=== PATIENT | male | born 1930 | race Caucasian/White ===

== ENCOUNTER → 2016-07-30 | Outpatient (CLI) | payer MEDICARE ==
[~2016-07-30] MED LIST: ASPI81TA2 PO; CALC-348 PO; CALC-709 PO; CALC625T PO; CLOP75TA33 PO; FLUD0.1T PO; FURO40TA5 PO; GABA-222 PO; LEVO75TA10 PO; MIDO10TA PO; MULT1TAB69 PO; POTA20TA10 PO; TAMS0.4C20 PO; VIT1CAPS5 PO; [UNRECOGNIZED DRUG - CODE] PO
== END ==
LOC: IMA 10:08
PROVIDERS: ATTEND Family Medicine
DX: M81.0 Age-related osteoporosis without current pathological fracture (principal); Z87.828 Personal history of other (healed) physical injury and trauma

== ENCOUNTER 2017-09-29 16:21 | Inpatient (IN) ==
[2017-09-29] MEDS ORDERED: NS 1,000 ML IV SCH (17:00)
[2017-09-29] MEDS: SALINE FLUSH 10ml SYRINGE IVF PRN ×2 (17:20→18:53)
[2017-09-29] MEDS ORDERED: IOHEXOL 350mg/ml 75ml INJECTION ONE (17:34)
[2017-09-29] MEDS ORDERED: SALINE FLUSH 10ml SYRINGE ONE (17:34)
[2017-09-29] MEDS ORDERED: NITROGLYCERIN 2% OINTMENT 1gm PACKET TP ONE (18:13)
[2017-09-29] MEDS ORDERED: FUROSEMIDE 40 MG/4 ML INJECTION IVP ONE (18:37)
--- NOTE | 2017-09-29 18:37 | Emergency Department Report ---
SOB HPI - General Chief Complaint: Shortness of Breath/Dyspnea <Donnie Olsen - 09/29/17 19: 06> Stated Complaint: sob weak hasnt eaten much since 09/24/17 <Donnie Olsen - 09/29/17 19:06> Time Seen by Provider: 09/29/17 16:50 <Donnie Olsen - 09/29/17 19:06> - History of Present Illness 87-year-old male presents to ER with shortness of breath worsening over the past several days. He had a suprapubic catheter placed a month ago due to obstructive uropathy and inability to self catheter efficiently. He has done well with the suprapubic catheter, is draining every 4 hours and feels like it works much better. However he has become short of breath last couple of days. Family brings him to the ER with worsening shortness of breath. He has a history of leukemia and cardiomyopathy with congestive heart failure. <Med Vasquez - 09/29/17 18:40> - Related Data Home Medications Medication Instructions Recorded Confirmed Fludrocortisone [Florinef] 0.1 mg PO DAILY #0 02/05/15 09/29/17 Levothyroxine Sodium 75 mcg PO DAILY #0 02/05/15 09/29/17 Lysine 500 mg PO BID #0 02/05/15 09/29/17 Potassium Chloride [K-DUR 20 mEq 20 meq PO DAILY #0 02/05/15 09/29/17 Tablet] Calcium/Mag Oxide/Vitamin D3 1 cap PO DAILY 08/31/17 09/29/17 [Coral Calcium 1,000 mg Cap] Cholecalciferol (Vitamin D3) 400 unit PO DAILY 08/31/17 09/29/17 [Vitamin D3] Furosemide [Lasix 40 mg Tab] 40 mg PO DAILY 08/31/17 09/29/17 Gabapentin [Neurontin] 600 mg PO BID 08/31/17 09/29/17 Midodrine [Proamatine] 5 mg PO DAILY 08/31/17 09/29/17 Acetaminophen [Tylenol Arthritis] 2 tab PO HS 09/29/17 09/29/17 Aspirin [Adult Aspirin Regimen] 81 mg PO DAILY 09/29/17 09/29/17 LORazepam [Ativan] 0.5 mg PO PRN 09/29/17 09/29/17 Tamsulosin [Flomax] 0.8 mg PO HS 09/29/17 09/29/17 Vit C/Vit E AC/Lut/Copper/Zinc 1 cap PO BID 09/29/17 09/29/17 [Preservision Lutein Softgel] <Donnie Olsen - 09/29/17 19:06> Allergies Allergy/AdvReac Type Severity Reaction Status Date / Time chlorpromazine Allergy Unknown Verified 09/29/17 17:07 clindamycin Allergy Unknown Verified 09/29/17 17:07 hydrocodone Allergy Unknown Verified 09/29/17 17:07 morphine Allergy Unknown Verified 09/29/17 17:07 Sulfa (Sulfonamide Allergy Unknown Verified 09/29/17 17:07 Antibiotics) <Donnie Olsen - 09/29/17 19:06> Review of Systems All systems: reviewed and negative except as stated <Med Vasquez - 18:40> [facility] Patient Stated Medical History Cerebrovascular Accident Yes: TIA Peripheral Neuropathy Yes Cataracts Yes: Bilateral Hearing Loss Yes Cardiac Arrhythmia Yes: Afib Congestive Heart Failure Yes: Chronic systolic, cardiomyopathy Coronary Artery Disease Yes 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 Hypertension Yes: Pulmonary HTN Hypotension Yes: Orthostatic Valvular Heart Disease Yes: Mitral regurgitation Other Cardiology Yes: Cardiomyopathy Sleep Apnea No Other GI Yes: Constipation Hx Benign Prostatic Yes Hyperplasia Other Yes: urinary [id number] Clotting Problems Yes: on aspirin Other Hematologic Yes: HX OF Chronic leukemia and lymphoma Osteoarthritis Yes Shingles Yes <Donnie Olsen - 09/29/17 19:06> Patient Stated Medical History Cerebrovascular Accident Yes: TIA Peripheral Neuropathy Yes Cataracts Yes: Bilateral Hearing Loss Yes Cardiac Arrhythmia Yes: Afib Congestive Heart Failure Yes: Chronic systolic, cardiomyopathy Coronary Artery Disease Yes 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 CHF. Chronic pain. BPH. Chronic Leukemia. Nonrheumatic mitral valve insufficiency. Cardiomyopathy. Atrial fibrillation <PedroMed Dougherty 09/29/17 18:40> Surgical History: Cardiac pacemaker. Appendectomy. Cholecystectomy. cataracts bilaterally. radio-ablation. colonoscopy. Heart Cath- 04/02/17. TURP- 09/01/17 <PedroMed Ladonna 09/29/17 18:40> - Social History Smoking status: Never smoker <PedroMed Ladonna 09/29/17 18:40> second hand exposure: No <PedroMed Dougherty 09/29/17 18:40> Substance use type: does not use <PedroMed Dougherty 09/29/17 18:40> Alcohol intake frequency: does not drink <PedroMed Dougherty 09/29/17 18:40> Housing: house <PedroMed Ladonna 09/29/17 18:40> Household members: spouse <PedroMed Dougherty 09/29/17 18:40> Current occupational status: retired <PedroMed Ladonna 09/29/17 18:40> Does patient use chewing tobacco?: No <PedroMed Dougherty 09/29/17 18:40> Current residence: Apartment/Private Home <PedroMed Dougherty 09/29/17 18:40> Physical Exam - Limitations Limitations: no limitations <PedroMed Dougherty 09/29/17 18:40> - General General appearance: alert <PedroMed Dougherty 09/29/17 18:40> - Normal Exams: Head:: Normocephalic without trauma <PedroMed Dougherty 09/29/17 18:40> Cardiovascular:: Regular rate and rhythm, without murmur or gallop, Pulses 2+ all extremities, capillary refill, <2 seconds all extremities <PedroMed Dougherty 09/29/17 18:40> Abdomen:: Bowel sounds positive, soft, non-tender, non-distended, no hepatosplenomegaly, masses or bruits noted <PedroMed Dougherty 09/29/17 18:40> Neurological:: Patient is alert, and oriented, cranial nerves, motor/sensory/ cerebellar, exams w/o gross deficits, to observation <PedroMed Ladonna 18:40> Psychiatric:: Patient exhibits, appropriate attention, emotion and affect < Med Vasquez - 09/29/17 18:40> - Respiratory Respiratory exam: Present: crackles (right greater than left) <Med Vasquez - 09/29/17 18:40> - Cardiovascular Cardiovascular exam: Present: regular rate, normal rhythm <Med Vasquez - 18:40> Course Vital Signs Temperature 99.0 F 09/29/17 16:25 Pulse Rate 72 09/29/17 16:25 Respiratory Rate 20 09/29/17 16:25 Blood Pressure 186/100 H 09/29/17 16:25 Pulse Oximetry 94 09/29/17 16:25 Temperature 99.0 F 09/29/17 16:25 Pulse Rate 75 09/29/17 18:15 Respiratory Rate 20 09/29/17 16:25 Blood Pressure 166/99 H 09/29/17 18:15 Pulse Oximetry 94 09/29/17 18:15 <Donnie Olsen - 09/29/17 19:06> Vital Signs Temperature 99.0 F 09/29/17 16:25 Pulse Rate 72 09/29/17 16:25 Respiratory Rate 20 09/29/17 16:25 Blood Pressure 186/100 H 09/29/17 16:25 Pulse Oximetry 94 09/29/17 16:25 Temperature 99.0 F 09/29/17 16:25 Pulse Rate 75 09/29/17 18:15 Respiratory Rate 20 09/29/17 16:25 Blood Pressure 166/99 H 09/29/17 18:15 Pulse Oximetry 94 09/29/17 18:15 <Med Vasquez - 09/29/17 18:40> Shortness of Breath/Dyspnea - [facility] Narrative Medical decision making narrative: CT chest shows diffuse (pattern with mild effusions only. No pulmonary embolism Patient will be admitted to the hospitalist service for congestive heart failure with pulmonary edema. Dr. Braulio Mills, the patient's son was notified of these findings, and questions were answered. <Donnie Olsen - 09/29/17 19:06> Peripheral IV started, and labs ordered including CBC, CMP, troponin, EKG, BNP and UA. Patient is 1 month out from a suprapubic catheterization placement and sedentary. Due to history of leukemia as well as other health issues, is likely her elevated BNP significant, therefore he was sent directly for CT angiogram of the lungs. BNP returns at 34,800 with normal white count and other labs reasonable. Hospitalist consulted and agreed to accept the patient for inpatient diuresis. Patient given 40 mg Lasix IV. <Med Vasquez E - 09/29/17 18:40> - Differential Diagnosis Likely: acute exacerbation of chronic obstructive airways disease, congestive heart failure, asthma with exacerbation, pulmonary embolism <PedroMed de la o E - 09/29/17 18:40> - Lab Data Result diagrams: 09/29/17 17:02 09/29/17 17:02 <Donnie Olsen H - 09/29/17 19:06> Lab Results 09/29/17 09/29/17 09/29/17 Range/Units 17:02 17:02 17:02 WBC 9.9 (4.5-11.0) T/MM3 RBC 3.83 L (4.50-5.90) M/MM3 Hgb 13.1 L (13.5-17.5) GM/DL Hct 40.8 L (41-53) % MCV 106.5 H (80-100) UM3 MCH 34.2 H (26-34) UUG MCHC 32.1 (31-37) GM/DL RDW Std Deviation 70.4 H (36.9-50.2) FL Plt Count 139 (130-400) T/MM3 MPV 10.9 (9.4-12.4) UM3 Immature Gran % (Auto) 0.6 H (0.0-0.5) % Neut % (Auto) 76.6 H (33-66) % Lymph % (Auto) 9.8 L (23-45) % [place] % (Auto) 12.7 H (0-9.0) % Eos % (Auto) 0.0 (0-4) % Baso % (Auto) 0.3 (0-2) % Neut # (Auto) 7.6 (1.8-7.7) T/MM3 Lymph # (Auto) 1.0 (1-4.8) T/MM3 [place] # (Auto) 1.3 H (0-0.8) T/MM3 Eos # (Auto) 0.0 (0-0.5) T/MM3 Baso # (Auto) 0.0 (0-0.2) T/MM3 Abs Immat Gran (auto) 0.06 H (0.00-0.03) T/MM3 Turbidity < 20 (0-20) Sodium 141 (134-144) MEQ/L Potassium 3.3 L (3.6-5) MEQ/L Chloride 101 (98-107) MEQ/L Carbon Dioxide 28 (22-30) MEQ/L Anion Gap 12 (5-15) meq/L BUN 18.0 (9-20) MG/DL Creatinine 0.9 (0.8-1.5) mg/dL GFR Calculation 80 BUN/Creatinine Ratio 20 (6-26) RATIO Glucose 127 H (75-110) MG/DL Calculated Osmolality 275 (261-280) MOSM/KG Calcium 9.7 (8.4-10.2) MG/DL Total Bilirubin 1.10 (0.20-1.30) MG/DL Icterus Index < 2 (0-7) AST 63 H (17-59) U/L ALT 37 (1-50) U/L Alkaline Phosphatase 138 H (38-126) U/L NT-Pro-B Natriuret Pep 97663 H (0-175) pg/mL Total Protein 7.3 (6.3-8.2) g/dL Albumin 3.8 (3.5-5.0) g/dL Globulin 3.5 (2.4-3.6) G/DL Albumin/Globulin Ratio 1.1 (1.1-2.2) RATIO Specimen Hemolysis < 15 (0-25) Ur Collection Type Urine, suprapubic Urine Color Yellow (YELLOW) Urine Clarity Cloudy Urine pH 6.5 (5.0-8.0) Ur Specific [place] 1.020 (1.015-1.025) Urine Protein 3+ A (NEGATIVE) Urine Glucose (UA) Negative (NEGATIVE) Urine Ketones Negative (NEGATIVE) Urine Occult Blood 3+ A (NEGATIVE) Urine Nitrate Positive A (NEGATIVE) Urine Bilirubin Negative (NEGATIVE) Urine Urobilinogen 1.0 (NORMAL) EU/DL Ur Leukocyte Esterase 3+ (NEGATIVE) Urine RBC Tntc (0-3) /HPF Urine WBC Tntc H (0-5) /HPF Urine Bacteria 3+ H (NEGATIVE) Ur Culture Indicated? Cult reflexed &setup <Donnie Olsen H - 09/29/17 19:06> Lab Results 09/29/17 09/29/17 09/29/17 Range/Units 17:02 17:02 17:02 WBC 9.9 (4.5-11.0) T/MM3 RBC 3.83 L (4.50-5.90) M/MM3 Hgb 13.1 L (13.5-17.5) GM/DL Hct 40.8 L (41-53) % MCV 106.5 H (80-100) UM3 MCH 34.2 H (26-34) UUG MCHC 32.1 (31-37) GM/DL RDW Std Deviation 70.4 H (36.9-50.2) FL Plt Count 139 (130-400) T/MM3 MPV 10.9 (9.4-12.4) UM3 Immature Gran % (Auto) 0.6 H (0.0-0.5) % Neut % (Auto) 76.6 H (33-66) % Lymph % (Auto) 9.8 L (23-45) % [place] % (Auto) 12.7 H (0-9.0) % Eos % (Auto) 0.0 (0-4) % Baso % (Auto) 0.3 (0-2) % Neut # (Auto) 7.6 (1.8-7.7) T/MM3 Lymph # (Auto) 1.0 (1-4.8) T/MM3 [place] # (Auto) 1.3 H (0-0.8) T/MM3 Eos # (Auto) 0.0 (0-0.5) T/MM3 Baso # (Auto) 0.0 (0-0.2) T/MM3 Abs Immat Gran (auto) 0.06 H (0.00-0.03) T/MM3 Turbidity < 20 (0-20) Sodium 141 (134-144) MEQ/L Potassium 3.3 L (3.6-5) MEQ/L Chloride 101 (98-107) MEQ/L Carbon Dioxide 28 (22-30) MEQ/L Anion Gap 12 (5-15) meq/L BUN 18.0 (9-20) MG/DL Creatinine 0.9 (0.8-1.5) mg/dL GFR Calculation 80 BUN/Creatinine Ratio 20 (6-26) RATIO Glucose 127 H (75-110) MG/DL Calculated Osmolality 275 (261-280) MOSM/KG Calcium 9.7 (8.4-10.2) MG/DL Total Bilirubin 1.10 (0.20-1.30) MG/DL Icterus Index < 2 (0-7) AST 63 H (17-59) U/L ALT 37 (1-50) U/L Alkaline Phosphatase 138 H (38-126) U/L NT-Pro-B Natriuret Pep 53039 H (0-175) pg/mL Total Protein 7.3 (6.3-8.2) g/dL Albumin 3.8 (3.5-5.0) g/dL Globulin 3.5 (2.4-3.6) G/DL Albumin/Globulin Ratio 1.1 (1.1-2.2) RATIO Specimen Hemolysis < 15 (0-25) Ur Collection Type Urine, suprapubic Urine Color Yellow (YELLOW) Urine Clarity Cloudy Urine pH 6.5 (5.0-8.0) Ur Specific [place] 1.020 (1.015-1.025) Urine Protein 3+ A (NEGATIVE) Urine Glucose (UA) Negative (NEGATIVE) Urine Ketones Negative (NEGATIVE) Urine Occult Blood 3+ A (NEGATIVE) Urine Nitrate Positive A (NEGATIVE) Urine Bilirubin Negative (NEGATIVE) Urine Urobilinogen 1.0 (NORMAL) EU/DL Ur Leukocyte Esterase 3+ (NEGATIVE) Urine RBC Tntc (0-3) /HPF Urine WBC Tntc H (0-5) /HPF Urine Bacteria 3+ H (NEGATIVE) Ur Culture Indicated? Cult reflexed &setup <Med Vasquez E - 09/29/17 18:40> Disposition Clinical Impression: Congestive heart failure <Donnie Olsen - 09/29/17 19:06> Disposition: 02 To [facility] <Donnie Olsen - 09/29/17 19:06> Condition: Stable <Donnie Olsen 09/29/17 19:06> Instructions: <Donnie Olsen 09/29/17 19:06> Prescriptions: No Action Potassium Chloride [K-DUR 20 mEq Tablet] 20 meq PO DAILY #0 Lysine 500 mg PO BID #0 Calcium/Mag Oxide/Vitamin D3 [Coral Calcium 1,000 mg Cap] 1 cap PO DAILY Cholecalciferol (Vitamin D3) [Vitamin D3] 400 unit PO DAILY Furosemide [Lasix 40 mg Tab] 40 mg PO DAILY Gabapentin [Neurontin] 600 mg PO BID Midodrine [Proamatine] 5 mg PO DAILY Tamsulosin [Flomax] 0.8 mg PO HS Vit C/Vit E AC/Lut/Copper/Zinc [Preservision Lutein Softgel] 1 cap PO BID Fludrocortisone [Florinef] 0.1 mg PO DAILY #0 Levothyroxine Sodium 75 mcg PO DAILY #0 Aspirin [Adult Aspirin Regimen] 81 mg PO DAILY LORazepam [Ativan] 0.5 mg PO PRN Acetaminophen [Tylenol Arthritis] 2 tab PO HS <Donnie Olsen - 09/29/17 19:06> Referrals: Denis Haile MD [Primary Care Provider] - <Donnie Olsen - 09/29/17 19:06> Forms: <Donnie Olsen - 09/29/17 19:06> Time of Disposition: 18:42 <Med Vasquez - 09/29/17 18:42> - Seen By: physician <Donnie Olsen - 09/29/17 19:06>
[2017-09-29] MEDS ORDERED: CEFTRIAXONE (ER USE ONLY) 1 GM in NS 100 ML IV ONE (19:19)
[2017-09-29] MEDS ORDERED: SENNA + DOCUSATE TABLET PO PRN (19:41)
[2017-09-29 19:51] VITALS: BMI 24.0
--- NOTE | 2017-09-29 19:54 | History & Physical Report ---
History of Present Illness Date: 09/30/17 Chief complaint: SOA x past few days, weakness HPI: Mr. Mills is an 87 y/o with history significant for systolic HF, cardiomyopathy, Afib/flutter w/ pacemaker, pulm HTN, ALYSAH, orthostatic hypotension, suprapubic catheter and multiple other issues who presents to ER in [place] w/ cc of SOA x past 3-5 days. He also c/o gradual weakness over the past month and over the past week has not had much appetite. Patient denies cp , SWAIN, n/v/d, f/c/s, melena, hematochezia, and hematuria. In ER patient had CTA chest and there was no PE but cardiomegaly, bilateral pleural effusion and diffuse changes c/w fluid overload/edema. Patient given 1 " nitro paste and 40mg IV Lasix x one in ER. UA showed + nitrites and TNTC WBCs (suprapubic cath in place) and patient started on Rocephin 1 gram IV x one in ER. Patient had EKG which showed paced rhythm, troponin is pending, Hgb = 13, BP was elevated at 179//98 however patient is on midodrine and fludrocortisone. BNP was 34,000. Patient is followed by Dr. Rich of cardiology. Patient to be admitted to the Hospitalist service for further evaluation and management and will consult Dr. Rich. Patient is feeling a little better, and had a good response to the Lasix IV 40mg x one in the ER. Review of Systems All systems PM: 10-point ROS was reviewed, no additional remarkable complaints except Past Medical History Medical History Updates: CAD. CHF. Chronic pain. BPH. Chronic Leukemia. Nonrheumatic mitral valve insufficiency. Cardiomyopathy. Atrial fibrillation Surgical History: Cardiac pacemaker. Appendectomy. Cholecystectomy. cataracts bilaterally. radio-ablation. colonoscopy. Heart Cath- 04/02/17. TURP- 09/01/17 Family History: Father lived to be 97 y/o and had minimal medical issues. Mother had kidney issues, had partial nephrectomy on one side and a total nephrectomy on the other. Family History: As Above - Social History Smoking status: Never smoker Does patient use chewing tobacco?: No Current residence: Apartment/Private Home Medications Home Medications Medication Instructions Recorded Confirmed Type Fludrocortisone [Florinef] 0.1 mg PO DAILY #0 02/05/15 09/29/17 History Levothyroxine Sodium 75 mcg PO DAILY #0 02/05/15 09/29/17 History Lysine 500 mg PO BID #0 02/05/15 09/29/17 History Potassium Chloride [K-DUR 20 mEq 20 meq PO DAILY #0 02/05/15 09/29/17 History Tablet] Calcium/Mag Oxide/Vitamin D3 1 cap PO DAILY 08/31/17 09/29/17 History [Coral Calcium 1,000 mg Cap] Cholecalciferol (Vitamin D3) 400 unit PO DAILY 08/31/17 09/29/17 History [Vitamin D3] Furosemide [Lasix 40 mg Tab] 40 mg PO DAILY 08/31/17 09/29/17 History Gabapentin [Neurontin] 600 mg PO BID 08/31/17 09/29/17 History Midodrine [Proamatine] 5 mg PO DAILY 08/31/17 09/29/17 History Acetaminophen [Tylenol Arthritis] 2 tab PO HS 09/29/17 09/29/17 History Aspirin [Adult Aspirin Regimen] 81 mg PO DAILY 09/29/17 09/29/17 History LORazepam [Ativan] 0.5 mg PO PRN 09/29/17 09/29/17 History Tamsulosin [Flomax] 0.8 mg PO HS 09/29/17 09/29/17 History Vit C/Vit E AC/Lut/Copper/Zinc 1 cap PO BID 09/29/17 09/29/17 History [Preservision Lutein Softgel] Allergies Allergy/AdvReac Type Severity Reaction Status Date / Time chlorpromazine Allergy Unknown Verified 09/29/17 17:07 clindamycin Allergy Unknown Verified 09/29/17 17:07 hydrocodone Allergy Unknown Verified 09/29/17 17:07 morphine Allergy Unknown Verified 09/29/17 17:07 Sulfa (Sulfonamide Allergy Unknown Verified 09/29/17 17:07 Antibiotics) Exam Vital Signs: Temperature 99.0 F 09/29/17 16:25 Pulse Rate 75 09/29/17 19:00 Respiratory Rate 20 09/29/17 16:25 Blood Pressure 179/98 H 09/29/17 18:56 Pulse Oximetry 94 09/29/17 19:00 - Constitutional Present: no acute distress - Routine HEENT Exam Head: Present: normocephalic, atraumatic Eye: Present: EOMI, PERRL ENT: Present: mucous membranes moist - Routine Neck Exam Present: supple, full ROM. Absent: JVD - Routine Respiratory Exam Present: crackles. Absent: accessory muscle use, dyspnea, respiratory distress - Routine Cardiovascular Exam Comments: Paced rhythm - Routine Abdominal Exam Present: soft, normoactive bowel sounds, non distended, non tender - Routine Extremities Exam Present: edema (bilateral LE edema - chronic). Absent: cyanosis, clubbing - Routine Skin Exam Present: dry. Absent: cyanosis, erythema - Routine Neurological Exam Present: alert, oriented X3, CN II-XII intact Results - Labs CBC & Chem 7: 09/30/17 04:03 09/30/17 04:03 Assessment and Plan Assessment and Plan: Assessment: 1) Acute exacerbation of systolic congestive heart failure with bilateral pleural effusions and pulmonary edema 2) Acute UTI in the setting of chronic suprapubic catheter 3) Atrial Fibrillation w/ pacemaker 4) Pulmonary HTN 5) Cardiomyopathy 6) Mitral Regurgitation 7) ALYSHA 8) Hypothyroidism 9) Peripheral Neuropathy 10) Orthostatic Hypotension 11) BPH/outlet obstruction w/ recent placement of suprapubic catheter Plan: Admit to Hospitalist service Consult Dr. Rich in the AM Lasix 40mg IV x one in ER, will give another IV dose at 0400 and then reassess in the AM as to continued need for IV Lasix vs. patient's home dose of 40mg po once daily Labs in the AM including CBC, BMP, Mg, TSH and troponin Telemetry SCDs Home meds as indicated RT consult - patient states he does not wear a CPAP but uses a fan blowing in his face PT consult Urine culture Accurate Ins/Outs I discussed the plan of care with the patient and he verbalized understanding. DVT Prophylaxis: SCD's Resuscitation Status: Do Not Resuscitate - Physician Narrative Physician: Josefina José MD Narrative: Date: 09/30/17 Time: 1914 Above reviewed and pt interviewed/examined this am. Please see note documented today. Hospital Course Summary Disclaimer: The visit summary below is not to be considered part of the above Progress Note.
[2017-09-29] MEDS ORDERED: LORazepam 0.5 MG TABLET PO PRN (20:50)
[2017-09-29] MEDS ORDERED: CEFTRIAXONE 1 G in NS 100 ML IV ONE (21:00)
[2017-09-29] MEDS ORDERED: ALBUTEROL/IPRATROPIUM 2.5mg-0.5mg/3ml NEB AEROSOL PRN (21:37)
[2017-09-29] MEDS: GABAPENTIN 600 MG TABLET PO SCH (21:42)
[2017-09-29] MEDS: POM TAMSULOSIN 0.4 MG CAPSULE PO SCH (21:42)
--- NOTE | 2017-09-30 02:29 | Cardiology Consult Note ---
<Jazmyne Palomino - Last Filed: 09/30/17 03:30> History of Present Illness Consult date: 09/30/17 Requesting physician: Donnie Mg Consult reason: congestive heart failure ( ) Chief complaint: SOB History of present illness: This is an 87 year old patient known to Dr. Rich for a history of CAD, CM, SHF, chronic A-fib, PPM- [employer], PHTN, orthostatic hypotension, TIA, MR, TI, leukemia and lymphoma - cured many yrs ago per pt. He had a suprapubic catheter placed about 1 month ago and he has been weak ever since. Over the last month he has had increasing SOB, YEBOAH, some swelling in legs, but is able to sleep flat in bed. He has a fan blowing at his face constantly in order to help him breath. When he is in bed he props his legs up. For the last month he has had a poor appetite, but is drinking fluids well. Denies chest pain , palpitations, nausea, vomiting, diarrhea, fever, chills, or blood in urine or stool. He takes his meds as prescribed including lasix po daily. It has been at least 6 months since he has f/u with Dr. Rich. He was brought into ER by family. In ER: ECG: Afib, V-paced, HR 75. trop neg. CTA chest: cardiomegaly, shilpi pleural effusions, and edema, no PE. BNP 34,800, + UTI. BP 179/89 however, he is on midodrine and fludrocortisone. In ER he was given Ntg paste 1 inch, lasix 40mg IV x1, and Rocephin. Dr. Rich was consulted for CHF and cardiac. Currently, pt is lying flat in bed with legs propped up as usual. He states his SOB has improved. He has good urine output from the lasix. 04/02/[address] Rich EF 40%, dilated left ventricle with global hypokinesia, no mitral regurgitation or gradient across the aortic valve. LVEDP was about 8. CORONARY ANGIOGRAPHY Left main was free of significant lesions. Left anterior descending artery was a [id number]-caliber vessel which wrapped around the apex and had diffuse disease of up to about 20%-30% stenosis. Diagonals were free of significant lesions. Left circumflex artery was codominant and large with no significant lesions. First marginal had about 40% proximal stenosis. Right coronary artery was large and codominant with diffuse disease with about 30% stenosis in proximal and distal segment. Mid RCA had endovascular stent which was widely patent. IMPRESSION 1. Coronary artery disease as described above. 2. Dilated left ventricle with ejection fraction of about 40%. PLAN Medical management. Review of Systems - Constitutional Constitutional: Present: chills, fatigue, weakness, weight loss, other (thin). Absent: fever(s) - EENMT Eyes: Absent: change in vision Balance: Absent: vertigo Mouth/Throat: Absent: sore throat - Cardiovascular Cardiovascular: Present: dyspnea on exertion, edema (mild). Absent: chest pain , palpitations, syncope, orthopnea Vascular: Present: pedal edema - Respiratory Respiratory: Present: dyspnea, dyspnea on exertion. Absent: cough, hemoptysis - Gastrointestinal Gastrointestinal: Absent: abdominal pain, constipation, diarrhea, melena, nausea - Musculoskeletal Musculoskeletal: Present: muscle weakness, other (chronic right hip pain. 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 CHF. Chronic pain. BPH. Chronic Leukemia. Nonrheumatic mitral valve insufficiency. Cardiomyopathy. Atrial fibrillation Surgical History: Cardiac pacemaker. Appendectomy. Cholecystectomy. cataracts bilaterally. radio-ablation. colonoscopy. Heart Cath- 04/02/17. TURP- 09/01/17 Family History: Father at 97 and was never sick. 5 children A/W Dr. Mills, anesthesiologist is his son. - Social History Smoking status: Never smoker second hand exposure: No Substance use type: does not use Alcohol intake frequency: does not drink Housing: house Household members: spouse Current occupational status: retired Does patient use chewing tobacco?: No Current residence: Apartment/Private Home Medications Home Medications Medication Instructions Recorded Confirmed Type Levothyroxine Sodium 75 mcg PO DAILY #0 02/05/15 09/29/17 History Lysine 500 mg PO BID #0 02/05/15 09/29/17 History Calcium/Mag Oxide/Vitamin D3 1 cap PO DAILY 08/31/17 09/29/17 History [Coral Calcium 1,000 mg Cap] Cholecalciferol (Vitamin D3) 400 unit PO DAILY 08/31/17 09/29/17 History [Vitamin D3] Gabapentin [Neurontin] 600 mg PO BID 08/31/17 09/29/17 History Midodrine [Proamatine] 5 mg PO DAILY 08/31/17 09/29/17 History Acetaminophen [Tylenol Arthritis] 2 tab PO HS 09/29/17 09/29/17 History Aspirin [Adult Aspirin Regimen] 81 mg PO DAILY 09/29/17 09/29/17 History LORazepam [Ativan] 0.5 mg PO PRN 09/29/17 09/29/17 History Vit C/Vit E AC/Lut/Copper/Zinc 1 cap PO BID 09/29/17 09/29/17 History [Preservision Lutein Softgel] Fludrocortisone [Florinef] 0.1 mg PO TuThSa tab 10/01/17 Rx Furosemide [Lasix 40 mg Tab] 40 mg PO BID #60 tab 10/01/17 Rx Potassium Chloride [K-DUR 20 mEq 20 meq PO TIDWM #90 tab 10/01/17 Rx Tablet] cephALEXin [Cephalexin] 1 cap PO TID #24 cap 10/01/17 Rx Allergies Allergy/AdvReac Type Severity Reaction Status Date / Time chlorpromazine Allergy Unknown Verified 09/29/17 17:07 clindamycin Allergy Unknown Verified 09/29/17 17:07 hydrocodone Allergy Unknown Verified 09/29/17 17:07 morphine Allergy Unknown Verified 09/29/17 17:07 Sulfa (Sulfonamide Allergy Unknown Verified 09/29/17 17:07 Antibiotics) Exam Vital signs: Temperature 95.9 F L 09/29/17 23:00 Pulse Rate 75 09/29/17 23:00 Respiratory Rate 18 09/29/17 23:00 Blood Pressure 159/94 H 09/29/17 23:00 Pulse Oximetry 96 09/30/17 00:51 - Constitutional no acute distress, thin, cooperative - Routine HEENT Exam Head: Present: normocephalic, atraumatic Eye: Present: normal accommodation, conjunctivae pink ENT: Present: mucous membranes moist - Routine Neck Exam Absent: JVD, carotid bruit - Routine Chest/Breast/Axilla Exam Chest wall: Present: pacemaker - Routine Respiratory Exam Present: crackles (fine crackles throughout. ). Absent: dyspnea - Routine Cardiovascular Exam Present: RRR, no murmur - Routine Abdominal Exam Present: soft, normoactive bowel sounds - Routine Exam Comments: suprapubic catheter, insertion site without redness. - Routine Extremities Exam Present: edema (mild edema in legs shilpi. ), pulses intact (+2), normal capillary refill Comments: mid calf to feet are discolored. - Routine Skin Exam Present: intact, dry, warm - Routine Neurological Exam Present: alert, oriented X3, moving all extremities, vision grossly intact, hearing grossly intact, normal speech - Routine Psychiatric Exam Present: normal affect, normal thought process, cooperative, good insight, good judgment Results 09/29/17 17:02 09/29/17 17:02 Cardiac Enzymes 09/29/17 Range/Units 19:53 Troponin I 0.036 (0-0.12) ng/ml Intake and Output 09/29/17 09/29/17 09/30/17 14:59 22:59 06:59 Intake Total 454.167 / 454.167 Output Total 3150 / 3150 Balance 454.167 / 454.167 -3150 / -3150 Intake: IV 454.167 / 454.167 Ceftriaxone 1 g In Ns 100 ml @ 100 / 100 200 mls/hr IV O ONE Rx#: [id number] Ns 1,000 ml @ 125 mls/hr IV . 354.167 / 354.167 Q8H [facility] Rx#:[id number] Output: Urine Amount (Catheter) 3150 / 3150 Other: Urine Appearance Clear Urine Color Yellow Urine Odor Normal Weight 172 lb 6.424 oz Patient Weight 09/30/17 06:59 Weight 172 lb 6.424 oz Laboratory Last Values WBC 9.9 T/MM3 (4.5-11.0) 09/29/17 17:02 RBC 3.83 M/MM3 (4.50-5.90) L 09/29/17 17:02 Hgb 13.1 GM/DL (13.5-17.5) L 09/29/17 17:02 Hct 40.8 % (41-53) L 09/29/17 17:02 MCV 106.5 UM3 (80-100) H 09/29/17 17:02 MCH 34.2 UUG (26-34) H 09/29/17 17:02 MCHC 32.1 GM/DL (31-37) 09/29/17 17:02 RDW Std Deviation 70.4 FL (36.9-50.2) H 09/29/17 17:02 Plt Count 139 T/MM3 (130-400) 09/29/17 17:02 MPV 10.9 UM3 (9.4-12.4) 09/29/17 17:02 Immature Gran % (Auto) 0.6 % (0.0-0.5) H 09/29/17 17:02 Neut % (Auto) 76.6 % (33-66) H 09/29/17 17:02 Lymph % (Auto) 9.8 % (23-45) L 09/29/17 17:02 [place] % (Auto) 12.7 % (0-9.0) H 09/29/17 17:02 Eos % (Auto) 0.0 % (0-4) 09/29/17 17:02 Baso % (Auto) 0.3 % (0-2) 09/29/17 17:02 Neut # (Auto) 7.6 T/MM3 (1.8-7.7) 09/29/17 17:02 Lymph # (Auto) 1.0 T/MM3 (1-4.8) 09/29/17 17:02 [place] # (Auto) 1.3 T/MM3 (0-0.8) H 09/29/17 17:02 Eos # (Auto) 0.0 T/MM3 (0-0.5) 09/29/17 17:02 Baso # (Auto) 0.0 T/MM3 (0-0.2) 09/29/17 17:02 Abs Immat Gran (auto) 0.06 T/MM3 (0.00-0.03) H 09/29/17 17:02 Turbidity < 20 (0-20) 09/29/17 17:02 Sodium 141 MEQ/L (134-144) 09/29/17 17:02 Potassium 3.3 MEQ/L (3.6-5) L 09/29/17 17:02 Chloride 101 MEQ/L (98-107) 09/29/17 17:02 Carbon Dioxide 28 MEQ/L (22-30) 09/29/17 17:02 Anion Gap 12 meq/L (5-15) 09/29/17 17:02 BUN 18.0 MG/DL (9-20) 09/29/17 17:02 Creatinine 0.9 mg/dL (0.8-1.5) 09/29/17 17:02 GFR Calculation 80 09/29/17 17:02 BUN/Creatinine Ratio 20 RATIO (6-26) 09/29/17 17:02 Glucose 127 MG/DL (75-110) H 09/29/17 17:02 Calculated Osmolality 275 MOSM/KG (261-280) 09/29/17 17:02 Calcium 9.7 MG/DL (8.4-10.2) 09/29/17 17:02 Total Bilirubin 1.10 MG/DL (0.20-1.30) 09/29/17 17:02 Icterus Index < 2 (0-7) 09/29/17 17:02 AST 63 U/L (17-59) H 09/29/17 17:02 ALT 37 U/L (1-50) 09/29/17 17:02 Alkaline Phosphatase 138 U/L (38-126) H 09/29/17 17:02 Troponin I 0.036 ng/ml (0-0.12) 09/29/17 19:53 NT-Pro-B Natriuret Pep 24606 pg/mL (0-175) H 09/29/17 17:02 Total Protein 7.3 g/dL (6.3-8.2) 09/29/17 17:02 Albumin 3.8 g/dL (3.5-5.0) 09/29/17 17:02 Globulin 3.5 G/DL (2.4-3.6) 09/29/17 17:02 Albumin/Globulin Ratio 1.1 RATIO (1.1-2.2) 09/29/17 17:02 Specimen Hemolysis < 15 (0-25) 09/29/17 19:53 Ur Collection Type Urine, suprapubic 09/29/17 17:02 Urine Color Yellow (YELLOW) 09/29/17 17:02 Urine Clarity Cloudy 09/29/17 17:02 Urine pH 6.5 (5.0-8.0) 09/29/17 17:02 Ur Specific [place] 1.020 (1.015-1.025) 09/29/17 17:02 Urine Protein 3+ (NEGATIVE) A 09/29/17 17:02 Urine Glucose (UA) Negative (NEGATIVE) 09/29/17 17:02 Urine Ketones Negative (NEGATIVE) 09/29/17 17:02 Urine Occult Blood 3+ (NEGATIVE) A 09/29/17 17:02 Urine Nitrate Positive (NEGATIVE) A 09/29/17 17:02 Urine Bilirubin Negative (NEGATIVE) 09/29/17 17:02 Urine Urobilinogen 1.0 EU/DL (NORMAL) 09/29/17 17:02 Ur Leukocyte Esterase 3+ (NEGATIVE) 09/29/17 17:02 Urine RBC Tntc /HPF (0-3) 09/29/17 17:02 Urine WBC Tntc /HPF (0-5) H 09/29/17 17:02 Urine Bacteria 3+ (NEGATIVE) H 09/29/17 17:02 Ur Culture Indicated? Cult reflexed &setup 09/29/17 17:02 - EKG Interpretation EKG shows: atrial fibrillation (09/29/2017 ECG: A-fib, V-paced. ) Assessment and Plan - Assessment and Plan (1) Congestive heart failure Status: Acute (2) Atherosclerotic heart disease of [place] coronary artery without angina pectoris Status: Chronic (3) Chronic atrial fibrillation Status: Chronic (4) Nonrheumatic mitral valve insufficiency Status: Chronic (5) Presence of cardiac pacemaker Status: Chronic - Assessment and Plan Acute SHF: - 03/2017 heart cath: EF 40%. - BNP 34,800 - CXR: cardiomegaly and congestion - Symptoms: increasing SOB, YEBOAH, edema - large U/O 3100 since admit after lasix 40mg IV x1 - Agree with Lasix 40mg IV last night and in am and reevaluate in the morning. He take s lasix 40mg po daily at home. - echo to evaluate structure and function of heart. CAD - cont ASA, unsure why he is not on statin therapy. - Trop neg x1 and ECG: V-paced. Chronic A-fib - CHADSVAS 6 with age, CAD, CHF, and Hx TIS - cont ASA and consider/discuss anticoagulation. Orthostatic hypotension - check orthostatics. - SBP is 150's to 170's lying - consider stopping midodrine or Florinef if standing BP is elevated. PPM - [employer] - V-paced UTI - on ABX per attending Hypothyroid - on levothyroxine, TSH pending. MR - echo ordered. ALYSHA BPH - suprapubic catheter placed 1 month ago. Hospital Course Summary Disclaimer: The visit summary below is not to be considered part of the above Progress Note. <Chris Rich - Last Filed: 10/06/17 13:32> Exam Vital signs: Temperature 96.1 F L 10/01/17 16:03 Pulse Rate 77 10/01/17 16:03 Respiratory Rate 20 10/01/17 16:03 Blood Pressure 139/88 10/01/17 16:03 Pulse Oximetry 95 10/01/17 16:40 Results 09/30/17 04:03 10/01/17 14:00 Assessment and Plan - Attestation Attestation Narrative: 10/06/17 13:32 Recommendation After examining the patient I agree with the above assessment. I am involved in the formulation of the patient's plan of care. - Assessment and Plan (1) Presence of cardiac pacemaker Status: Chronic (2) Chronic atrial fibrillation Status: Chronic (3) Nonrheumatic mitral valve insufficiency Status: Chronic (4) Atherosclerotic heart disease of [place] coronary artery without angina pectoris Status: Chronic (5) Congestive heart failure Problem details: Acute on chronic systolic CHF Status: Acute Hospital Course Summary Disclaimer: The visit summary below is not to be considered part of the above Progress Note. Addendum entered and electronically signed by Ruba Russell APRN 09/30/17 18: 07: EF 30-35% on echo, down from 55% 01/2017 - Cut Florinef 0.1mg to QOD - EKG V paced with underlying flutter? - Interrogate PPM - Orthostatic VS please
[2017-09-30] MEDS ORDERED: FUROSEMIDE 40 MG/4 ML INJECTION IVP SCH (04:00)
[2017-09-30] MEDS: ACETAMINOPHEN 325 MG TABLET PO PRN ×2 (06:28→15:23)
[2017-09-30] MEDS: POM LEVOTHYROXINE 75 MCG TABLET PO SCH (06:40)
--- NOTE | 2017-09-30 08:06 | CT Scan Report ---
Indication: dyspnea PROCEDURE: CT angio pulm emboli: Encounter: Initial Comparison: None Technique: Axial CT pulmonary angiographic phase images were performed through the chest after the administration of intravenous contrast. Coronal and Sagittal MIP reconstructed images were created and reviewed. Automated Exposure Control and Iterative Reconstruction dose reducing techniques were utilized. Contrast: Omnipaque 350 62 mL Findings: Pulmonary arteries: Exam is suboptimal and nondiagnostic beyond the main pulmonary arteries. No large central or subtle pulmonary embolus. Other findings: Subpleural pulmonary fibrotic changes. Small bilateral pleural effusions. No lobar pneumonia. No pneumothorax. Central airways are patent. No axillary or mediastinal adenopathy. Severe cardiomegaly without pericardial effusion. Left pacemaker. The upper abdomen shows no acute findings. Impression: Suboptimal exam. No large or central pulmonary embolus. Evidence of pulmonary fibrosis and mild CHF. There is a preliminary report by [facility]. .
[2017-09-30] MEDS: LIDOCAINE 1% INJ 10 MG, POTASSIUM CHLORIDE INJ 10 MEQ in NS 100 ML IV SCH ×4 (08:10→14:30)
[2017-09-30] MEDS ORDERED: FLUDROCORTISONE 0.1 MG PO SCH (09:00)
[2017-09-30] MEDS ORDERED: FUROSEMIDE 40 MG TABLET PO SCH (09:00)
[2017-09-30] MEDS: GABAPENTIN 600 MG TABLET PO SCH ×2 (10:12→21:06)
[2017-09-30] MEDS: POM ASPIRIN *EC* 81 MG TABLET PO SCH (10:12)
[2017-09-30] MEDS: MIDODRINE 5 MG PO SCH (10:13)
--- NOTE | 2017-09-30 10:32 | XRay Report ---
Indication: CHF PROCEDURE: XR chest 1V: Encounter: Initial Comparison: September 29, 2017 Findings: Mild interstitial prominence is improved. No new or worsening consolidation. Small pleural effusions are stable. No pneumothorax. Heart size remains enlarged. Mediastinal contours are stable. Left pacemaker. Impression: Slight improvement in congestive failure. .
--- NOTE | 2017-09-30 14:41 | History & Physical Report ---
History of Present Illness Date: 09/30/17 Chief complaint: dyspnea and weakness HPI: Mr. Mills is an 87 y/o male with history significant for systolic HF, cardiomyopathy, Afib/flutter w/ pacemaker, pulm HTN, ALYSHA, orthostatic hypotension, suprapubic catheter and multiple other issues who presented to ER in [place] yesterday evening with History of dyspnea worsening progressively over time accompanied by weakness and nausea. He denied cough, sputum production, chest pain, palpitations, pleuritic pain, fevers, or chills. He denied PND or orthopnea but reports having increasing exertional dyspnea. Weakness was more notable when he attempted to ambulate as well. His notes he has occasional nocturnal dyspnea but this is been sporadic for some time and was not worse recently. He' s eaten little over the past week due to nausea. He has a history of sleep apnea but does not require nocturnal oxygen or CPAP instead treating his nocturnal symptoms with direct air movement from a fan. He has occasional episodes of chilling which are also sporadic and have not increased recently. BNP was significantly elevated in the emergency room and CTA was obtained with PE protocol demonstrating no evidence of pulmonary emboli but volume overload with bilateral pleural effusions and CHF was identified. The patient was treated with IV Lasix and diuresed well overnight. Additionally pyuria was noted with presence of nitrates and patient was empirically started on antibiotics for probable urinary tract infection. A suprapubic catheter was placed a little over one month ago by Dr. Campos. Patient was subsequently admitted for management. He was seen by Dr. Rich service overnight with recommendation that diuresis be continued. Of note the patient had a cardiac catheterization in March 2017 at which time his ejection fraction was 40% and left ventricle was reported to be dilated with global hypokinesis. No significant valvular or coronary disease was described. Review of Systems All systems PM: 10-point ROS was reviewed, no additional remarkable complaints except (those previously recorded in history of present illness.) Past Medical History Medical History Updates: CAD. CHF. Chronic pain. BPH. Chronic Myelogenous Leukemia. Nonrheumatic mitral valve insufficiency. Cardiomyopathy. Atrial fibrillation. Orthostatic hypotension. Pulmonary hypertension Surgical History: Cardiac pacemaker. Appendectomy. Cholecystectomy. cataracts bilaterally. radio-ablation. colonoscopy. Heart Cath- 04/02/17. TURP- 09/01/17 Family History Updates: Father-healthy, at age 97. Mother had nephrectomy for obstructed kidney and partial nephrectomy for obstruction-no malignancy. One sister has arthritis but is otherwise healthy. Family History: As Above - Social History Smoking status: Never smoker Substance use type: does not use Alcohol intake frequency: does not drink Household members: spouse Does patient use chewing tobacco?: No Current residence: Apartment/Private Home Social history: PCP-Dr. Haile Cardiology-Dr. Rich Urology-Dr. Campos DPOA-patient's with 2 daughters secondary CODE STATUS-DO NOT RESUSCITATE Medications Home Medications Medication Instructions Recorded Confirmed Type Fludrocortisone [Florinef] 0.1 mg PO DAILY #0 02/05/15 09/29/17 History Levothyroxine Sodium 75 mcg PO DAILY #0 02/05/15 09/29/17 History Lysine 500 mg PO BID #0 02/05/15 09/29/17 History Potassium Chloride [K-DUR 20 mEq 20 meq PO DAILY #0 02/05/15 09/29/17 History Tablet] Calcium/Mag Oxide/Vitamin D3 1 cap PO DAILY 08/31/17 09/29/17 History [Coral Calcium 1,000 mg Cap] Cholecalciferol (Vitamin D3) 400 unit PO DAILY 08/31/17 09/29/17 History [Vitamin D3] Furosemide [Lasix 40 mg Tab] 40 mg PO DAILY 08/31/17 09/29/17 History Gabapentin [Neurontin] 600 mg PO BID 08/31/17 09/29/17 History Midodrine [Proamatine] 5 mg PO DAILY 08/31/17 09/29/17 History Acetaminophen [Tylenol Arthritis] 2 tab PO HS 09/29/17 09/29/17 History Aspirin [Adult Aspirin Regimen] 81 mg PO DAILY 09/29/17 09/29/17 History LORazepam [Ativan] 0.5 mg PO PRN 09/29/17 09/29/17 History Tamsulosin [Flomax] 0.8 mg PO HS 09/29/17 09/29/17 History Vit C/Vit E AC/Lut/Copper/Zinc 1 cap PO BID 09/29/17 09/29/17 History [Preservision Lutein Softgel] Allergies Allergy/AdvReac Type Severity Reaction Status Date / Time chlorpromazine Allergy Unknown Verified 09/29/17 17:07 clindamycin Allergy Unknown Verified 09/29/17 17:07 hydrocodone Allergy Unknown Verified 09/29/17 17:07 morphine Allergy Unknown Verified 09/29/17 17:07 Sulfa (Sulfonamide Allergy Unknown Verified 09/29/17 17:07 Antibiotics) Exam Vital Signs: Temperature 97.5 F 09/30/17 11:00 Pulse Rate 76 09/30/17 11:00 Respiratory Rate 16 09/30/17 07:00 Blood Pressure 166/99 H 09/30/17 11:00 Pulse Oximetry 95 09/30/17 13:26 EXAM: General-NAD, alert, fluent speech HEENT-PERRL, EOMI without nystagmus, conjugate gaze, conjunctiva clear, sclera anicteric, facial structures symmetric, oropharynx clear, neck supple and without adenopathy Lungs-respirations nonlabored, good airflow, crackles 1/2 up right lung posteriorly, left base; no wheezing present Cardiac-regular rhythm, S1-S2; neck veins pulsating just above clavicles with patient sitting at 90 upright Abd-soft, nontender upper abdomen but suprapubic tenderness present, bowel sounds present Ext-+1 edema bilateral lower extremities Skin-without wounds are generalized rash MS-degenerative changes small joints of the hands subluxation of the left thumb Neuro-cranial nerves 3-12 intact, motor tone/power within normal limits, sensation intact to light touch 4 extremities Psych-calm, cooperative Results - Labs CBC & Chem 7: 09/30/17 04:03 09/30/17 04:03 Labs: Potassium on admission yesterday evening 3.3 with BUN 18, creatinine 0.9; AST 63 , ALT 37 ProBNP 34,800 troponin 0.036-0.061 TSH 2.89 - Imaging and Cardiology CT scan - chest Status: image reviewed by me (CT-PE protocol without evidence of pulmonary emboli, small bilateral pleural effusions, and severe cardiomegaly present. No evidence of pneumonia or pulmonary fibrosis.) Chest x-ray Status: image reviewed by me (mild/moderate CHF) Assessment and Plan (1) Congestive heart failure Problem details: Acute on chronic systolic CHF Current visit: Yes Status: Acute (2) Cardiomyopathy Current visit: No Status: Acute Assessment and Plan: Impression: Acute/chronic systolic heart failure Dyspnea with hypoxia Urinary tract infection Hypokalemia Atrial fibrillation Cardiomyopathy Pulmonary hypertension/mitral regurgitation per past data Urinary retention/BPH--> suprapubic catheter Obstructive sleep apnea, untreated Orthostatic hypotension Peripheral neuropathy Nausea Plan: Admit as inpatient to Hospitalist service due to hypoxia and electrolyte abnormalities. Dr. Rich consulted, continue diuresis as initiated in the emergency room. Echocardiogram obtained, report pending. Lasix 40mg IV x one in ER, will give another IV dose at 0400 and patient is diuresed well with decreased oxygen demand this morning from 2L to 1L. Oral furosemide resumed this morning, increase frequency to twice a day. Potassium down-being replaced IV, recheck this afternoon. Telemetry with paced rhythm. SCDs, will clarify if formal anticoagulation should be considered with cardiology. Home meds as indicated RT consult - patient states he does not wear a CPAP but uses a fan blowing in his face--obtain overnight oximetry after heart failure stabilizes. PT/OT consults Urine culture with preliminary growth gram-negative kanwal, continue ceftriaxone given clinical improvement in appetite and nausea with treatment and presence of suprapubic tenderness on exam. Monitor orthostatic vital signs, moderate hypertension demonstrated thus far but all readings supine. Old records reviewed, discussed with cardiology. DVT Prophylaxis: SCD's Resuscitation Status: Do Not Resuscitate - Physician Narrative Narrative: Date: 09/30/17 Time: 1423 Hospital Course Summary Disclaimer: The visit summary below is not to be considered part of the above Progress Note. Hospital Course: 09/29/17 Patient admitted with increasing dyspnea, weakness, and UTI. Diuresis initiated. Dr. Rich consulted; BNP significantly elevated. 09/30/17 Admit as inpatient to Hospitalist service due to hypoxia and electrolyte abnormalities. Dr. Rich consulted, continue diuresis as initiated in the emergency room. Echocardiogram obtained, report pending. Lasix 40mg IV x one in ER, will give another IV dose at 0400 and patient is diuresed well with decreased oxygen demand this morning from 2L to 1L. Oral furosemide resumed this morning, increase frequency to twice a day. Potassium down-being replaced IV, recheck this afternoon. Telemetry with paced rhythm. SCDs, will clarify if formal anticoagulation should be considered with cardiology. Home meds as indicated RT consult - patient states he does not wear a CPAP but uses a fan blowing in his face--obtain overnight oximetry after heart failure stabilizes. PT/OT consults Urine culture with preliminary growth gram-negative kanwal, continue ceftriaxone given clinical improvement in appetite and nausea with treatment and presence of suprapubic tenderness on exam. Monitor orthostatic vital signs, moderate hypertension demonstrated thus far but all readings supine.
[2017-09-30] MEDS ORDERED: LORazepam 0.5 MG TABLET PO PRN (15:10)
[2017-09-30] MEDS: FUROSEMIDE 40 MG TABLET PO SCH (21:06)
[2017-09-30] MEDS: POM TAMSULOSIN 0.4 MG CAPSULE PO SCH (21:07)
[2017-09-30] MEDS ORDERED: CEFTRIAXONE 1 G in NS 100 ML IV SCH (22:00)
[2017-09-30] MEDS: SALINE FLUSH 10ml SYRINGE IVF PRN (22:26)
[2017-10-01] MEDS: POM TAMSULOSIN 0.4 MG CAPSULE PO SCH (02:41)
[2017-10-01] MEDS: POM LEVOTHYROXINE 75 MCG TABLET PO SCH (06:17)
[2017-10-01 08:54] VITALS: RESP 20
[2017-10-01] MEDS: GABAPENTIN 600 MG TABLET PO SCH (09:41)
[2017-10-01] MEDS: MIDODRINE 5 MG PO SCH (09:41)
[2017-10-01] MEDS: POM ASPIRIN *EC* 81 MG TABLET PO SCH (09:42)
[2017-10-01] MEDS: FUROSEMIDE 40 MG TABLET PO SCH (09:42)
--- NOTE | 2017-10-01 09:44 | Echocardiogram ---
DATE OF PROCEDURE: September 30, 2017 REFERRING PHYSICIAN: Dr. Tio Madrid This is a two-dimensional echo with spectral Doppler, color-flow and M-mode. It was obtained in a patient with shortness of breath and coronary artery disease. Left atrium is dilated. Left ventricular end-diastolic dimension is normal. Left ventricle wall thickness is increased. Global hypokinesia is present with ejection fraction of about 30-35%. Right atrium is dilated. Right ventricle is normal. Aortic root dimension is normal. Mitral valve annulus is calcified. Mitral valve leaflets are normal with mild mitral regurgitation. Aortic valve shows fibrocalcific changes with no stenosis. Mild aortic insufficiency is present. Tricuspid valve shows moderate tricuspid regurgitation with moderate pulmonary hypertension with estimated pulmonary artery systolic pressure of 52. Pulmonary valve shows mild pulmonary insufficiency. There is no pericardial effusion. Device wires are seen in the right heart. IMPRESSION 1. Global hypokinesia with ejection fraction of about 30 35%. 2. Left ventricular hypertrophy. 3. Biatrial dilation. 4. Device wires are present in the right heart. 5. Mitral annulus calcification with mild mitral regurgitation. 6. Aortic sclerosis with mild aortic insufficiency. 7. Moderate tricuspid regurgitation with moderate pulmonary hypertension with estimated pulmonary artery systolic pressure of 52. 8. Mild pulmonary insufficiency. MTDD
[2017-10-01] MEDS ORDERED: FLUDROCORTISONE 0.1 MG TABLET PO SCH (12:00)
--- NOTE | 2017-10-01 12:17 | Progress Note ---
- Date 10/01/17 Subjective: Powell is seen today in follow up. He is feeling very well. Denies any SOA or other concerns. He reports that he walked down opposite [place] without any difficulty with PT this morning. He is hopeful that he can return home today. He reports feeling quite strong and believes he would be safe to dismiss. His family is present today as well, and feels he is improving. Objective Vital signs: Temperature 96.5 F L 10/01/17 08:53 Pulse Rate 72 10/01/17 08:53 Respiratory Rate 20 10/01/17 08:53 Blood Pressure 134/85 10/01/17 08:53 Pulse Oximetry 97 10/01/17 10:38 - Constitutional Present: no acute distress, average body habitus, cooperative - Routine HEENT Exam Head: Present: normocephalic, atraumatic ENT: Present: mucous membranes moist - Routine Respiratory Exam Present: CTA bilaterally. Absent: accessory muscle use, rales, rhonchi, wheezes , crackles - Routine Cardiovascular Exam Present: RRR, S1, S2, murmur - Routine Abdominal Exam Present: soft, non distended, non tender - Routine Exam Comments: Chronic s/p cath - Routine Extremities Exam Present: no edema, non tender - Routine Musculoskeletal Exam Musculoskeletal: Present: normal strength, moving extremities well - Routine Skin Exam Present: intact, dry, warm - Routine Neurological Exam Present: alert, oriented X3, moving all extremities - Routine Psychiatric Exam Present: cooperative, good insight, good judgment Results - Labs CBC & Chem 7: 09/30/17 04:03 10/01/17 14:00 Microbiology Results: Urine culture > 100,000 CFU Escherichia coli resistant to ampicillin, Cipro, Levaquin, and Bactrim; intermediate sensitivity to Augmentin. Sensitive to all tested cephalosporins, aminoglycosides, Zosyn, and nitrofurantoin. - Echocardiogram History of Echocardiogram: IMPRESSION. 1. Global hypokinesia with ejection fraction of about 30 35%. 2. Left ventricular hypertrophy. 3. Biatrial dilation. 4. Device wires are present in the right heart. 5. Mitral annulus calcification with mild mitral regurgitation. 6. Aortic sclerosis with mild aortic insufficiency. 7. Moderate tricuspid regurgitation with moderate pulmonary hypertension with estimated pulmonary artery systolic pressure of 52. 8. Mild pulmonary insufficiency. Assessment and Plan (1) Congestive heart failure Problem details: Acute on chronic systolic CHF Current visit: Yes Status: Acute (2) Cardiomyopathy Current visit: No Status: Acute Assessment and Plan: Impression: Acute/chronic systolic heart failure Dyspnea with hypoxia Urinary tract infection Hypokalemia Atrial fibrillation Cardiomyopathy Pulmonary hypertension/mitral regurgitation per past data Urinary retention/BPH--> suprapubic catheter Orthostatic hypotension Peripheral neuropathy Nausea Plan: 08/31/17 Powell is doing very well. Echo reviewed- EF down a bit from 40% to 30-35% Responding well to diuresis. Down 4.2kg from admission weight. Continue Lasix. replacing KCL. Will repeat BMP at 2pm to monitor potassium. If > 3.5, potential DC later today. Pt. is very anxious to return home. He has been weaned to RA and is maintaining O2 sats. Will order overnight oximetry since he is not able to tolerate CPAP- perhaps he would at least tolerate nocturnal oxygen due to known ALYSHA. Home soon- later today or tomorrow. DVT Prophylaxis: SCD's Resuscitation Status: Do Not Resuscitate - Physician Narrative Physician: Josefina José MD Narrative: Date: 10/01/17 Time: 1520 I have independently evaluated and examined this patient. I reviewed the chart, the patient's history, and the FIRE CONTROLMAN/PA's documented findings as above. We discussed and formulated the assessment and plan as above with additions as below: Mr. Mills was seen with his and son at bedside. He reports he feels much better today and denies dyspnea or cough. Both he and his deny history of sleep apnea (aware of diagnosis as she has it) so there was some confusion regarding history obtained yesterday. He confirms that he uses a fan to help with airflow at night but not because of apnea. Overnight oximetry obtained last night with minor hypoxia demonstrated and 16 minutes with oxygen saturation < 89%. Saturation dropped as low as 79% during the night while on room air and for about 4 hours of the study he was on 1 or 2 L oxygen making study somewhat difficult to interpret. Clearly saturations were better while he was on oxygen then went off. Given resolving CHF I would favor repeating study as an outpatient in a couple of weeks before initiating oxygen. Results of the study were discussed with the patient and family and they are in agreement with plan. Escherichia coli UTI, recently treated with Cipro but current strain is resistant to Levaquin. Will treat an additional 8 days with Keflex to complete course of antibiotics. Patient is fully alert and cooperative. Oxygen saturation 97% on room air. Respirations nonlabored with good airflow although there are faint crackles at the bases. Minor suprapubic tenderness persists which he attributes to the Henriquez catheter. Abdomen is otherwise benign. Medication changes discussed with Dr. Rich and subsequently with the patient and his family. -Furosemide increased to 40 mg twice a day. -KCl increased to 20 mEq 3 times a day (repeat potassium this afternoon 3.2 and additional 40 mEq dose given prior to discharge) -Flomax discontinued -Fludrocortisone decreased from daily to 3 times a week on Wednesday, , and Wednesday -Cephalexin 500 mg 3 times a day 8 days for UTI. Stable for discharge. Please refer to discharge summary. Hospital Course Summary Disclaimer: The visit summary below is not to be considered part of the above Progress Note. Hospital Course: 09/29/17 Patient admitted with increasing dyspnea, weakness, and UTI. Diuresis initiated. Dr. Rich consulted; BNP significantly elevated. 09/30/17 Admit as inpatient to Hospitalist service due to hypoxia and electrolyte abnormalities. Dr. Rich consulted, continue diuresis as initiated in the emergency room. Echocardiogram obtained, report pending. Lasix 40mg IV x one in ER, will give another IV dose at 0400 and patient is diuresed well with decreased oxygen demand this morning from 2L to 1L. Oral furosemide resumed this morning, increase frequency to twice a day. Potassium down-being replaced IV, recheck this afternoon. Telemetry with paced rhythm. SCDs, will clarify if formal anticoagulation should be considered with cardiology. Home meds as indicated RT consult - patient states he does not wear a CPAP but uses a fan blowing in his face--obtain overnight oximetry after heart failure stabilizes. PT/OT consults Urine culture with preliminary growth gram-negative kanwal, continue ceftriaxone given clinical improvement in appetite and nausea with treatment and presence of suprapubic tenderness on exam. Monitor orthostatic vital signs, moderate hypertension demonstrated thus far but all readings supine. 08/31/17 Powell is doing very well. Echo reviewed- EF down a bit from 40% to 30-35% Responding well to diuresis. Down 4.2kg from admission weight. Continue Lasix. replacing KCL. Will repeat BMP at 2pm to monitor potassium. If > 3.5, potential DC later today. Pt. is very anxious to return home. He has been weaned to RA and is maintaining O2 sats. Will order overnight oximetry since he is not able to tolerate CPAP- perhaps he would at least tolerate nocturnal oxygen due to known ALYSHA. Home soon- later today or tomorrow.
--- NOTE | 2017-10-01 15:14 | Cardiology Progress Note ---
<Ruba Russell M - Last Filed: 10/01/17 15:11> Subjective Principal diagnosis: dyspnea Interval history: [place] is seen in follow up for SCHF. He is sitting up in the recliner with family at the bedside. States his breathing has returned to normal and he is anxious to go home. Exam Vital signs: Temperature 96.4 F L 10/01/17 13:06 Pulse Rate 71 10/01/17 13:06 Respiratory Rate 20 10/01/17 13:06 Blood Pressure 115/75 10/01/17 13:06 Pulse Oximetry 97 10/01/17 13:06 Inpatient Medications: Generic Name Dose Route Start Last Admin Trade Name Freq PRN Reason Stop Dose Admin Acetaminophen 650 mg 09/29/17 19:41 09/30/17 15:23 Tylenol PO 650 mg Q5H PRN Administration Discomfort Acetaminophen 1,300 mg 09/29/17 22:12 09/30/17 21:07 Tylenol Arthritis 650 Mg Sr PO 1,300 mg HS MURALI Administration Albuterol/Ipratropium 3 ml 09/29/17 21:37 Duoneb AEROSOL RTQID PRN Aspirin 81 mg 09/30/17 09:00 10/01/17 09:42 Ecotrin PO 81 mg DAILY MURALI Administration Cholecalciferol 400 unit 09/30/17 09:00 10/01/17 09:43 Vit. D-3 PO 400 unit DAILY MURALI Administration Fludrocortisone Acetate 0.1 mg 10/02/17 12:00 Florinef PO TuThSa MURALI Furosemide 40 mg 09/30/17 21:00 10/01/17 09:42 Lasix 40 Mg Tab PO 40 mg BID MURALI Administration Gabapentin 600 mg 09/29/17 21:00 10/01/17 09:41 Neurontin PO 600 mg BID MURALI Administration Ceftriaxone Sodium 1 g/ Sodium 100 mls @ 200 mls/hr 09/30/17 22:00 09/30/17 23:00 Chloride IV Infused Q24H MURALI Infusion Levothyroxine Sodium 75 mcg 09/30/17 06:45 10/01/17 06:17 Synthroid PO 75 mcg ACB MURALI Administration Lorazepam 0.5 mg 09/29/17 20:50 09/29/17 21:45 Ativan PO 0.5 mg HS PRN Administration Sleep Lorazepam 0.5 mg 09/30/17 15:10 Ativan PO Q6H PRN Anxiety Midodrine 5 mg 09/30/17 09:00 10/01/17 09:41 Proamatine PO 5 mg DAILY MURALI Administration Potassium Chloride 20 meq 10/01/17 12:00 10/01/17 13:19 K-Dur 20 Meq Tablet PO 20 meq TIDWM MURALI Administration Senna/Docusate Sodium 1 tab 09/29/17 19:41 09/30/17 21:06 Senna Plus Tablet PO 1 tab BID PRN Administration Constipation Sodium Chloride 10 - 80 ml 09/29/17 16:52 09/30/17 22:26 Iv Flush IVF 20 ml PRN PRN Administration Flushing Tamsulosin HCl 0.8 mg 09/29/17 21:00 10/01/17 02:41 Flomax PO Not Given HS MURALI Discontinued Medications Generic Name Dose Route Start Last Admin Trade Name Freq PRN Reason Stop Dose Admin Acetaminophen 1,300 mg 09/30/17 21:00 Tylenol Arthritis 650 Mg Sr PO HS MURALI Fludrocortisone Acetate 0.1 mg 09/30/17 09:00 09/30/17 10:12 Florinef PO 0.1 mg DAILY MURALI Administration Fludrocortisone Acetate 0.1 mg 10/01/17 12:00 10/01/17 11:33 Florinef PO Not Given QTUTHSA MURALI Furosemide 40 mg 09/29/17 18:37 09/29/17 18:54 Lasix 40 Mg/4 Ml IVP 09/29/17 18:38 40 mg O ONE Administration Furosemide 40 mg 09/30/17 09:00 09/30/17 10:12 Lasix 40 Mg Tab PO 40 mg DAILY MURALI Administration Furosemide 40 mg 09/30/17 04:00 09/30/17 03:43 Lasix 40 Mg/4 Ml IVP 40 mg O MURALI Administration Sodium Chloride 1,000 mls @ 125 mls/hr 09/29/17 17:00 09/29/17 20:08 Normal Saline IV Infused .Q8H MURALI Infusion Ceftriaxone Sodium 1 gm/ 100 mls @ 200 mls/hr 09/29/17 19:19 09/29/17 21:02 Sodium Chloride IV 09/29/17 19:48 Not Given O ONE Ceftriaxone Sodium 1 g/ Sodium 100 mls @ 200 mls/hr 09/29/17 21:00 09/29/17 22:10 Chloride IV 09/29/17 21:29 Infused O ONE Infusion Lidocaine HCl 10 mg/ Potassium 100 mls @ 100 mls/hr 09/30/17 07:15 09/30/17 15:30 Chloride 10 meq/ Sodium IV 09/30/17 11:28 Infused Chloride .Q1H MURALI Infusion Nitroglycerin 1 inch 09/29/17 18:13 09/29/17 18:38 Nitro-Bid TP 09/29/17 18:14 Not Given O ONE Potassium Chloride 20 meq 09/30/17 08:00 10/01/17 09:42 K-Dur 20 Meq Tablet PO 20 meq WB MURALI Administration Potassium Chloride 40 meq 09/30/17 17:51 09/30/17 18:16 K-Dur 20 Meq Tablet PO 09/30/17 17:52 40 meq ONCE ONE Administration Potassium Chloride 40 meq 10/01/17 14:54 K-Dur 20 Meq Tablet PO 10/01/17 14:55 ONCE ONE - Constitutional no acute distress, well nourished, cooperative - Routine HEENT Exam Head: Present: normocephalic ENT: Present: mucous membranes moist - Routine Neck Exam Absent: JVD, carotid bruit - Routine Chest/Breast/Axilla Exam Chest wall: Present: tenderness - Routine Respiratory Exam Present: CTA bilaterally. Absent: rales, wheezes - Routine Cardiovascular Exam Present: no murmur, irregular rhythm - Routine Abdominal Exam Present: soft, non tender - Routine Extremities Exam Present: no edema - Routine Skin Exam Present: intact, dry, warm - Routine Neurological Exam Present: alert, oriented X3 - Routine Psychiatric Exam Present: normal affect, normal thought process Results 09/30/17 04:03 10/01/17 14:00 Cardiac Enzymes 09/30/17 Range/Units 18:40 Troponin I 0.035 (0-0.12) ng/ml Comprehensive Metabolic Panel 09/30/17 10/01/17 10/01/17 Range/Units 16:15 04:49 14:00 Sodium 143 143 (134-144) MEQ/L Potassium 3.2 L 3.4 L 3.2 L (3.6-5) MEQ/L Chloride 100 99 (98-107) MEQ/L Carbon Dioxide 32 H 33 H (22-30) MEQ/L BUN 26.0 H 25.0 H (9-20) MG/DL Creatinine 1.0 1.0 (0.8-1.5) mg/dL Glucose 107 108 (75-110) MG/DL Calcium 9.2 9.2 (8.4-10.2) MG/DL Albumin 3.4 L (3.5-5.0) g/dL Intake and Output 10/01/17 10/01/17 10/01/17 06:59 14:59 22:59 Intake Total 250 / 250 1645 / 1645 Output Total 1500 / 1500 Balance -1250 / -1250 1645 / 1645 Intake: IV 100 / 100 Ceftriaxone 1 g In Ns 100 ml @ 100 / 100 200 mls/hr IV Q24H MURALI Rx#: [id number] Oral 150 / 150 1645 / 1645 Output: Urine Amount (Catheter) 1500 / 1500 - Imaging and Cardiology Imaging & Cardiology Narrative: Date of Exam: 09/30/17 Type of Exam(s): US echo doppler complete DATE OF PROCEDURE: September 30, 2017 REFERRING PHYSICIAN: Dr. Tio Madrid This is a two-dimensional echo with spectral Doppler, color-flow and M-mode. It was obtained in a patient with shortness of breath and coronary artery disease. Left atrium is dilated. Left ventricular end-diastolic dimension is normal. Left ventricle wall thickness is increased. Global hypokinesia is present with ejection fraction of about 30-35%. Right atrium is dilated. Right ventricle is normal. Aortic root dimension is normal. Mitral valve annulus is calcified. Mitral valve leaflets are normal with mild mitral regurgitation. Aortic valve shows fibrocalcific changes with no stenosis. Mild aortic insufficiency is present. Tricuspid valve shows moderate tricuspid regurgitation with moderate pulmonary hypertension with estimated pulmonary artery systolic pressure of 52. Pulmonary valve shows mild pulmonary insufficiency. There is no pericardial effusion. Device wires are seen in the right heart. IMPRESSION 1. Global hypokinesia with ejection fraction of about 30 35%. 2. Left ventricular hypertrophy. 3. Biatrial dilation. 4. Device wires are present in the right heart. 5. Mitral annulus calcification with mild mitral regurgitation. 6. Aortic sclerosis with mild aortic insufficiency. 7. Moderate tricuspid regurgitation with moderate pulmonary hypertension with estimated pulmonary artery systolic pressure of 52. 8. Mild pulmonary insufficiency. 10/01/17 15:15 Assessment and Plan - Assessment and Plan (1) Presence of cardiac pacemaker Status: Chronic (2) Chronic atrial fibrillation Status: Chronic (3) Nonrheumatic mitral valve insufficiency Status: Chronic (4) Atherosclerotic heart disease of [place] coronary artery without angina pectoris Status: Chronic (5) Congestive heart failure Problem details: Acute on chronic systolic CHF Status: Acute - Assessment and Plan 09/30/17 Acute SHF: - 03/2017 heart cath: EF 40%. - BNP 34,800 - CXR: cardiomegaly and congestion - Symptoms: increasing SOB, YEBOAH, edema - large U/O 3100 since admit after lasix 40mg IV x1 - Agree with Lasix 40mg IV last night and in am and reevaluate in the morning. He take s lasix 40mg po daily at home. - echo to evaluate structure and function of heart. CAD - cont ASA, unsure why he is not on statin therapy. - Trop neg x1 and ECG: V-paced. Chronic A-fib - CHADSVAS 6 with age, CAD, CHF, and Hx TIS - cont ASA and consider/discuss anticoagulation. Orthostatic hypotension - check orthostatics. - SBP is 150's to 170's lying - consider stopping midodrine or Florinef if standing BP is elevated. PPM - [employer] - V-paced UTI - on ABX per attending Hypothyroid - on levothyroxine, TSH pending. MR - echo ordered. ALYSHA BPH - suprapubic catheter placed 1 month ago. Thank you for allowing us to participate in the care of this patient 10/01/17 Okay to discharge with Lasix 40mg BID. - Instructed patient to limit fluid intake to 2 L /day Hospital Course Summary Disclaimer: The visit summary below is not to be considered part of the above Progress Note. Hospital Course: 09/29/17 Patient admitted with increasing dyspnea, weakness, and UTI. Diuresis initiated. Dr. Rich consulted; BNP significantly elevated. 09/30/17 Admit as inpatient to Hospitalist service due to hypoxia and electrolyte abnormalities. Dr. Rich consulted, continue diuresis as initiated in the emergency room. Echocardiogram obtained, report pending. Lasix 40mg IV x one in ER, will give another IV dose at 0400 and patient is diuresed well with decreased oxygen demand this morning from 2L to 1L. Oral furosemide resumed this morning, increase frequency to twice a day. Potassium down-being replaced IV, recheck this afternoon. Telemetry with paced rhythm. SCDs, will clarify if formal anticoagulation should be considered with cardiology. Home meds as indicated RT consult - patient states he does not wear a CPAP but uses a fan blowing in his face--obtain overnight oximetry after heart failure stabilizes. PT/OT consults Urine culture with preliminary growth gram-negative kanwal, continue ceftriaxone given clinical improvement in appetite and nausea with treatment and presence of suprapubic tenderness on exam. Monitor orthostatic vital signs, moderate hypertension demonstrated thus far but all readings supine. 08/31/17 [place] is doing very well. Echo reviewed- EF down a bit from 40% to 30-35% Responding well to diuresis. Down 4.2kg from admission weight. Continue Lasix. replacing KCL. Will repeat BMP at 2pm to monitor potassium. If > 3.5, potential DC later today. Pt. is very anxious to return home. He has been weaned to RA and is maintaining O2 sats. Will order overnight oximetry since he is not able to tolerate CPAP- perhaps he would at least tolerate nocturnal oxygen due to known ALYSHA. Home soon- later today or tomorrow. <Chris Rich - Last Filed: 10/06/17 13:46> Exam Vital signs: Temperature 96.1 F L 10/01/17 16:03 Pulse Rate 77 10/01/17 16:03 Respiratory Rate 20 10/01/17 16:03 Blood Pressure 139/88 10/01/17 16:03 Pulse Oximetry 95 10/01/17 16:40 Inpatient Medications: Discontinued Medications Generic Name Dose Route Start Last Admin Trade Name Damienq PRN Reason Stop Dose Admin Acetaminophen 650 mg 09/29/17 19:41 09/30/17 15:23 Tylenol PO 650 mg Q5H PRN Administration Discomfort Acetaminophen 1,300 mg 09/30/17 21:00 Tylenol Arthritis 650 Mg Sr PO HS MURALI Acetaminophen 1,300 mg 09/29/17 22:12 09/30/17 21:07 Tylenol Arthritis 650 Mg Sr PO 1,300 mg HS MURALI Administration Albuterol/Ipratropium 3 ml 09/29/17 21:37 Duoneb AEROSOL RTQID PRN Aspirin 81 mg 09/30/17 09:00 10/01/17 09:42 Ecotrin PO 81 mg DAILY MURALI Administration Cholecalciferol 400 unit 09/30/17 09:00 10/01/17 09:43 Vit. D-3 PO 400 unit DAILY MURALI Administration Fludrocortisone Acetate 0.1 mg 09/30/17 09:00 09/30/17 10:12 Florinef PO 0.1 mg DAILY MURALI Administration Fludrocortisone Acetate 0.1 mg 10/01/17 12:00 10/01/17 11:33 Florinef PO Not Given QTUTHSA MURALI Fludrocortisone Acetate 0.1 mg 10/02/17 12:00 Florinef PO TuThSa MURALI Furosemide 40 mg 09/29/17 18:37 09/29/17 18:54 Lasix 40 Mg/4 Ml IVP 09/29/17 18:38 40 mg O ONE Administration Furosemide 40 mg 09/30/17 09:00 09/30/17 10:12 Lasix 40 Mg Tab PO 40 mg DAILY MURALI Administration Furosemide 40 mg 09/30/17 04:00 09/30/17 03:43 Lasix 40 Mg/4 Ml IVP 40 mg O MURALI Administration Furosemide 40 mg 09/30/17 21:00 10/01/17 09:42 Lasix 40 Mg Tab PO 40 mg BID MURALI Administration Gabapentin 600 mg 09/29/17 21:00 10/01/17 09:41 Neurontin PO 600 mg BID MURALI Administration Sodium Chloride 1,000 mls @ 125 mls/hr 09/29/17 17:00 09/29/17 20:08 Normal Saline IV Infused .Q8H MURALI Infusion Ceftriaxone Sodium 1 gm/ 100 mls @ 200 mls/hr 09/29/17 19:19 09/29/17 21:02 Sodium Chloride IV 09/29/17 19:48 Not Given O ONE Ceftriaxone Sodium 1 g/ Sodium 100 mls @ 200 mls/hr 09/29/17 21:00 09/29/17 22:10 Chloride IV 09/29/17 21:29 Infused O ONE Infusion Lidocaine HCl 10 mg/ Potassium 100 mls @ 100 mls/hr 09/30/17 07:15 09/30/17 15:30 Chloride 10 meq/ Sodium IV 09/30/17 11:28 Infused Chloride .Q1H MURALI Infusion Ceftriaxone Sodium 1 g/ Sodium 100 mls @ 200 mls/hr 09/30/17 22:00 09/30/17 23:00 Chloride IV Infused Q24H MURALI Infusion Levothyroxine Sodium 75 mcg 09/30/17 06:45 10/01/17 06:17 Synthroid PO 75 mcg ACB MURALI Administration Lorazepam 0.5 mg 09/29/17 20:50 09/29/17 21:45 Ativan PO 0.5 mg HS PRN Administration Sleep Lorazepam 0.5 mg 09/30/17 15:10 Ativan PO Q6H PRN Anxiety Midodrine 5 mg 09/30/17 09:00 10/01/17 09:41 Proamatine PO 5 mg DAILY MURALI Administration Nitroglycerin 1 inch 09/29/17 18:13 09/29/17 18:38 Nitro-Bid TP 09/29/17 18:14 Not Given O ONE Potassium Chloride 20 meq 09/30/17 08:00 10/01/17 09:42 K-Dur 20 Meq Tablet PO 20 meq WB MURALI Administration Potassium Chloride 40 meq 09/30/17 17:51 09/30/17 18:16 K-Dur 20 Meq Tablet PO 09/30/17 17:52 40 meq ONCE ONE Administration Potassium Chloride 20 meq 10/01/17 12:00 10/01/17 13:19 K-Dur 20 Meq Tablet PO 20 meq TIDWM MURALI Administration Potassium Chloride 40 meq 10/01/17 14:54 K-Dur 20 Meq Tablet PO 10/01/17 14:55 ONCE ONE Senna/Docusate Sodium 1 tab 09/29/17 19:41 09/30/17 21:06 Senna Plus Tablet PO 1 tab BID PRN Administration Constipation Sodium Chloride 10 - 80 ml 09/29/17 16:52 09/30/17 22:26 Iv Flush IVF 20 ml PRN PRN Administration Flushing Tamsulosin HCl 0.8 mg 09/29/17 21:00 10/01/17 02:41 Flomax PO Not Given HS MURALI Results 09/30/17 04:03 10/01/17 14:00 Assessment and Plan - Assessment and Plan (1) Presence of cardiac pacemaker Status: Chronic (2) Chronic atrial fibrillation Status: Chronic (3) Nonrheumatic mitral valve insufficiency Status: Chronic (4) Atherosclerotic heart disease of [place] coronary artery without angina pectoris Status: Chronic (5) Congestive heart failure Problem details: Acute on chronic systolic CHF Status: Acute - Attestation Attestation Narrative: 10/06/17 13:46 Recommendation After examining the patient I agree with the above assessment. I am involved in the formulation of the patient's plan of care. Hospital Course Summary Disclaimer: The visit summary below is not to be considered part of the above Progress Note.
[2017-10-01 16:08] VITALS: BP 139/88; PULSE 77; TEMP 96.1
[2017-10-01 16:41] VITALS: O2SAT 95
--- NOTE | 2017-10-01 23:18 | Discharge Summary ---
Discharge Information Date of admission: 09/30/17 14:04 Anticipated date of discharge: 10/01/17 Attending Physician: Josefina José MD Primary care physician: Denis Larose MD Consults: Dr. Chris Felix - Discharge Diagnosis (1) Congestive heart failure Status: Acute (2) Cardiomyopathy Status: Acute Acute/chronic systolic heart failure, EF 30-35% Dyspnea with hypoxia Urinary tract infection Hypokalemia Atrial fibrillation Cardiomyopathy Pulmonary hypertension/mitral regurgitation per past data Urinary retention/BPH--> suprapubic catheter Orthostatic hypotension Peripheral neuropathy Nausea - Procedures Procedures: Echocardiogram on 09/30/17: 1. Global hypokinesia with ejection fraction of about 30- 35%. 2. Left ventricular hypertrophy. 3. Biatrial dilation. 4. Device wires are present in the right heart. 5. Mitral annulus calcification with mild mitral regurgitation. 6. Aortic sclerosis with mild aortic insufficiency. 7. Moderate tricuspid regurgitation with moderate pulmonary hypertension with estimated pulmonary artery systolic pressure of 52. 8. Mild pulmonary insufficiency. Overnight oximetry obtained 09/30-10/01/17 demonstrated mild hypoxia with oxygen saturation < 89% for 16 minutes. Saturation dropped as low as 79% during the night while on room air and for about 4 hours of the study he was on 1 or 2 L oxygen making study somewhat difficult to interpret. Oxygen saturations were clearly better when he was on oxygen and on room air although the last one to 2 hours this study he returned to room air and minimal desaturation was seen. Repeat study in several weeks is recommended. - Laboratory Labs: On admission 09/29/17 proBNP 34,800; troponin 0.036-0.061-0.035 10/01/17 14:00 - Microbiology Urine culture > 100,000 CFU Escherichia coli resistant to ampicillin, Cipro, Levaquin, and Bactrim; intermediate sensitivity to Augmentin. Sensitive to all tested cephalosporins, aminoglycosides, Zosyn, and nitrofurantoin. History of Present Illness HPI: Mr. Mills is an 87 y/o male with history significant for systolic HF, cardiomyopathy, Afib/flutter w/ pacemaker, pulm HTN, ALYSHA, orthostatic hypotension, suprapubic catheter and multiple other issues who presented to ER in [place] yesterday evening with History of dyspnea worsening progressively over time accompanied by weakness and nausea. He denied cough, sputum production, chest pain, palpitations, pleuritic pain, fevers, or chills. He denied PND or orthopnea but reports having increasing exertional dyspnea. Weakness was more notable when he attempted to ambulate as well. His notes he has occasional nocturnal dyspnea but this is been sporadic for some time and was not worse recently. He' s eaten little over the past week due to nausea. He has a history of sleep apnea but does not require nocturnal oxygen or CPAP instead treating his nocturnal symptoms with direct air movement from a fan. He has occasional episodes of chilling which are also sporadic and have not increased recently. BNP was significantly elevated in the emergency room and CTA was obtained with PE protocol demonstrating no evidence of pulmonary emboli but volume overload with bilateral pleural effusions and CHF was identified. The patient was treated with IV Lasix and diuresed well overnight. Additionally pyuria was noted with presence of nitrates and patient was empirically started on antibiotics for probable urinary tract infection. A suprapubic catheter was placed a little over one month ago by Dr. Campos. Patient was subsequently admitted for management. He was seen by Dr. Felix service overnight with recommendation that diuresis be continued. Of note the patient had a cardiac catheterization in March 2017 at which time his ejection fraction was 40% and left ventricle was reported to be dilated with global hypokinesis. No significant valvular or coronary disease was described. Objective Vital signs: Temperature 96.1 F L 10/01/17 16:03 Pulse Rate 77 10/01/17 16:03 Respiratory Rate 20 10/01/17 16:03 Blood Pressure 139/88 10/01/17 16:03 Pulse Oximetry 95 - RA 10/01/17 16:40 Patient is fully alert and cooperative. Oxygen saturation 97% on room air. Respirations nonlabored with good airflow although there are faint crackles at the bases. Minor suprapubic tenderness persists which he attributes to the Henriquez catheter. Abdomen is otherwise benign. Height/Weight/BMI: Weight 76.8 kg Hospital Course This is a general summary of the patient's hospital course. For more details refer to the complete medical record. Hospital course: 09/29/17 Patient admitted with increasing dyspnea, weakness, and UTI. Diuresis initiated. Dr. Felix consulted; BNP significantly elevated. 09/30/17 Admit as inpatient to Hospitalist service due to hypoxia and electrolyte abnormalities. Dr. Felix consulted, continue diuresis as initiated in the emergency room. Echocardiogram obtained, report pending. Lasix 40mg IV x one in ER, will give another IV dose at 0400 and patient is diuresed well with decreased oxygen demand this morning from 2L to 1L. Oral furosemide resumed this morning, increase frequency to twice a day. Potassium down-being replaced IV, recheck this afternoon. Telemetry with paced rhythm. Home meds as indicated Urine culture with preliminary growth gram-negative kanwal, continue ceftriaxone given clinical improvement in appetite and nausea with treatment and presence of suprapubic tenderness on exam. Monitor orthostatic vital signs, moderate hypertension demonstrated thus far but all readings supine. 08/31/17 [place] is doing very well. Echo reviewed- EF down a bit from 40% to 30-35% Responding well to diuresis. Weight down 4.2kg from admission weight. Discharge weight 76.8 kg. Continue Lasix. Replace potassium orally. He has been weaned to RA and is maintaining O2 sats. Overnight oximetry last night with sporadic desaturations-recommended follow-up study in several weeks. Results of urine culture and sensitivities reviewed with patient and his . Stable for discharge; continue Lasix at twice a day dose and antibiotics for UTI. Medication changes discussed with Dr. Felix and subsequently with the patient and his family. -Furosemide increased to 40 mg twice a day. -KCl increased to 20 mEq 3 times a day (repeat potassium this afternoon 3.2 and additional 40 mEq dose given prior to discharge) -Flomax discontinued -Fludrocortisone decreased from daily to 3 times a week on Wednesday, , and Wednesday -Cephalexin 500 mg 3 times a day 8 days for UTI. Basic metabolic panel be drawn in one week at Dr. Larose's office and results forwarded to Dr. Felix. Patient follow-up with Dr. Larose in 1-[address] Felix in 2 weeks. Time spent with patient: discharge greater than 30 minutes Resuscitation Status: Do Not Resuscitate Discharge Plan - Discharge Disposition Discharge Date: 10/01/17 Disposition: 01 Discharged Home, Self-Care *Condition: Stable Reason For Visit (Visit label in EMR): CHF, hypokalemia, and new hypoxia - Discharge Medications *Discharge Medications: New Fludrocortisone [Florinef] 0.1 mg PO TuThSa tab cephALEXin [Cephalexin] 1 cap PO TID #24 cap Continue Lysine 500 mg PO BID #0 Calcium/Mag Oxide/Vitamin D3 [Coral Calcium 1,000 mg Cap] 1 cap PO DAILY Cholecalciferol (Vitamin D3) [Vitamin D3] 400 unit PO DAILY Gabapentin [Neurontin] 600 mg PO BID Midodrine [Proamatine] 5 mg PO DAILY Vit C/Vit E AC/Lut/Copper/Zinc [Preservision Lutein Softgel] 1 cap PO BID Levothyroxine Sodium 75 mcg PO DAILY #0 Aspirin [Adult Aspirin Regimen] 81 mg PO DAILY LORazepam [Ativan] 0.5 mg PO PRN Acetaminophen [Tylenol Arthritis] 2 tab PO HS Changed Furosemide [Lasix 40 mg Tab] 40 mg PO BID #60 tab Potassium Chloride [K-DUR 20 mEq Tablet] 20 meq PO TIDWM #90 tab Discontinued Tamsulosin [Flomax] 0.8 mg PO HS Fludrocortisone [Florinef] 0.1 mg PO DAILY #0 - Discharge Packet/Instructions *Diet: Low-fat, low-sodium to avoid fluid retention *Activity: As tolerate *Pain Management/Treatment: Tylenol as before *Wound Care: Not applicable Additional Instructions: Take antibiotics (Keflex/cephalexin) 3 times daily for 8 days to complete course for bladder infection. Discontinue tamsulosin since you have suprapubic catheter. If you started having significant bladder spasm you may need to resume tamsulosin at 1 capsule daily and discuss further with Dr. Campos. Increase furosemide to 40 mg twice a day and potassium to 20 mEq 3 times a day with meals. You will need to have electrolytes checked in approximately [address] Larose's office or Dr. Felix's office to make sure your potassium is balanced and kidney tests are okay with a dose of furosemide. Fludrocortisone dose decreased from daily to just taking it 3 days a week on Wednesday, , and Wednesday. Remainder of your home medications are unchanged. *Expected Signs/Symptoms: Minor swelling in your ankles and you may be short of breath at times. You may have blood in your urine occasionally from the Henriquez catheter or debris in the urine. May experience bladder spasms at times. *Notify Physician if: Fever, increasing difficulty breathing, chest pain. *During Business Hours Contact: Dr. Larose's office or Dr. Felix's office *After Business Hours Contact: Call [facility] at [phone] and ask that the on-call physician be paged *Pending Lab/Results: No Pending Lab - Referrals/Follow Up *Referrals/Follow Up: Chris Felix MD [Physician] - 2 Weeks (Have lab work done in one week with results sent to Dr. Felix-labs can be done in his office or in Dr. Larose's office. AFTER SEEING DR LAROSE AND LABS OF ELETROLYTES AND RENAL PANEL ARE DONE IN HIS OFFICE CALL DR FELIX ABOUT APPOINTMENT [phone]..) Denis Larose MD [Primary Care Provider] - 10/15/17 9:30 am (1-2 wks LABS TO BE DONE LYTES AND RENAL PANEL SEND TO DR FELIX) - Patient Handouts Patient Handouts: Heart Failure (DC), Low-Sodium Diet (DC) - Dismissal Complete Discharge Instructions are:: Complete Physician Narrative - Narrative Attestation Narrative: Date: 10/01/17 Time: 0851
[2017-10-02] MEDS ORDERED: FLUDROCORTISONE 0.1 MG TABLET PO SCH (12:00)
== END 2017-10-01 17:30 | disposition home or self-care (01) | DRG 292 ==
LOC: ED 16:21 → EDHOLD 16:21 → SUATTDRO 19:19 → MED 19:30
PROVIDERS: ADMIT Internal Medicine; ATTEND Internal Medicine